=== PATIENT | male | born 1985 | race African-American/Black ===

== ENCOUNTER 2019-10-14 15:13 | Emergency (ER) | payer MEDICAID, OTHER ==
[~2019-10-14] VITALS: Ht 177.8 cm; Wt 79.0 kg
[2019-10-14 19:15] LABS: HEMATOCRIT. 36.4 % (42.0-52.0); HEMOGLOBIN. 12.5 g/dL (14.0-18.0); MEAN CORPUSCULAR HEMOGLOBIN 29.7 pg (28.0-32.0); MEAN CORPUSCULAR VOLUME 86.5 fL (80.0-94.0); MEAN PLATELET VOLUME 7.6 fl (7.4-10.4); PLATELET 183 x1000/uL (130-400); RED BLOOD CELL COUNT 4.21 mill/uL (4.7-6.1); RED CELL DISTRIBUTION WIDTH 18.4 % (11.6-14.6)
[2019-10-14 19:17] LABS: CHLORIDE 104 mEq/L (98-107)
[2019-10-14 19:37] LABS: PLATELET ESTIMATE NORMAL
[2019-10-14 20:34] VITALS: BP 127/80
== END 2019-10-14 20:37 | disposition home or self-care (01) ==
LOC: ER 15:13
DX: Z00.00 Encounter for general adult medical examination without abnormal findings (principal); M54.5 Low back pain; J45.909 Unspecified asthma, uncomplicated; Z88.0 Allergy status to penicillin
CPT/HCPCS: 36415; 80053; 85025; 99283

== ENCOUNTER 2020-03-01 00:29 | Emergency (ER) | payer MEDICAID ==
[~2020-03-01] VITALS: Ht 175.3 cm; Wt 90.0 kg
[2020-03-01] MEDS ORDERED: KETOROLAC 60MG/2ML VIAL IM ONE (00:45)
[2020-03-01 02:44] LABS: CLARITY URINE CLEAR (CLEAR); COLOR URINE YELLOW (YELLOW); KETONES URINE NEGATIVE (NEGATIVE); LEUKOCYTE ESTERASE URINE NEGATIVE (NEGATIVE); NITRITE URINE NEGATIVE (NEGATIVE); OCCULT BLOOD URINE NEGATIVE (NEGATIVE); PROTEIN URINE NEGATIVE (NEGATIVE); SPECIFIC GRAVITY URINE 1.023 (1.005-1.030)
[2020-03-01 05:00] VITALS: BP 120/80
== END 2020-03-01 06:36 | disposition home or self-care (01) ==
LOC: ER 00:29
DX: R10.9 Unspecified abdominal pain (principal); J45.909 Unspecified asthma, uncomplicated
CPT/HCPCS: 71045; 74018; 81003; 93005; 96372; 99285; J1885